=== PATIENT | male | born 1985 | race Two or more races ===

== ENCOUNTER → 2020-04-03 | Outpatient (CLI) | payer OTHER ==
[~2020-04-03] MED LIST: AMOXICILLIN500 MG; IBUPROFEN IB200 MG; TOBREX5 ML OP
== END | disposition home or self-care (01) ==
LOC: LAB 16:11 → CERTIFICAD 16:11
PROVIDERS: ATTEND General Practice
DX: Z11.1 Encounter for screening for respiratory tuberculosis (principal)

== ENCOUNTER → 2020-06-27 | Outpatient (CLI) | payer OTHER | END | disposition home or self-care (01) | LOC: PPH VACUNA 09:00 | DX: Z23 Encounter for immunization (principal) ==

== ENCOUNTER 2020-09-17 11:38 | Outpatient (CLI) | payer OTHER | END 2020-09-17 13:01 | disposition home or self-care (01) | LOC: PPH VACUNA 11:38 | DX: Z23 Encounter for immunization (principal) ==

== ENCOUNTER 2021-07-28 08:15 | Outpatient (CLI) | payer OTHER | END 2021-07-28 08:19 | disposition home or self-care (01) | LOC: PPH VACUNA 08:15 | PROVIDERS: ATTEND Emergency Medicine Pediatric Emergency Medicine | DX: Z23 Encounter for immunization (principal) ==

== ENCOUNTER 2021-08-15 16:58 | Emergency (ER) | payer OTHER ==
[~2021-08-15] VITALS: Ht 188 cm; Wt 99.8 kg
== END 2021-08-15 20:11 | disposition home or self-care (01) ==
LOC: ER 16:58
DX: B34.9 Viral infection, unspecified (principal); J11.1 Influenza due to unidentified influenza virus with other respiratory manifestations; M25.50 Pain in unspecified joint; Z03.818 Encounter for observation for suspected exposure to other biological agents ruled out

== ENCOUNTER 2022-06-24 13:48 | Outpatient (CLI) | payer OTHER | END 2022-06-24 13:53 | disposition home or self-care (01) | LOC: PPH VACUNA 13:48 | PROVIDERS: ATTEND Emergency Medicine Pediatric Emergency Medicine | DX: Z23 Encounter for immunization (principal) ==

== ENCOUNTER → 2022-07-10 08:35 | Outpatient (CLI) | payer OTHER | END | disposition home or self-care (01) | LOC: LAB 08:35 | PROVIDERS: ATTEND Internal Medicine | DX: Z13.0 Encounter for screening for diseases of the blood and blood-forming organs and certain disorders involving the immune mechanism (principal); Z13.220 Encounter for screening for lipoid disorders; Z13.29 Encounter for screening for other suspected endocrine disorder; E55.9 Vitamin D deficiency, unspecified ==

== ENCOUNTER 2022-09-12 09:44 | Outpatient (CLI) | payer OTHER | END 2022-09-12 09:45 | disposition home or self-care (01) | LOC: LAB 09:44 | PROVIDERS: ATTEND Internal Medicine | DX: E78.9 Disorder of lipoprotein metabolism, unspecified (principal); Z13.1 Encounter for screening for diabetes mellitus; Z13.220 Encounter for screening for lipoid disorders; Z13.29 Encounter for screening for other suspected endocrine disorder; E55.9 Vitamin D deficiency, unspecified ==

== ENCOUNTER 2022-09-16 11:10 | Outpatient (CLI) | payer OTHER | END 2022-09-16 11:20 | disposition home or self-care (01) | LOC: PPH VACUNA 11:10 | PROVIDERS: ATTEND Emergency Medicine Pediatric Emergency Medicine | DX: Z23 Encounter for immunization (principal) ==

== ENCOUNTER 2023-03-27 09:57 | Outpatient (CLI) | payer OTHER | END 2023-03-27 09:59 | disposition home or self-care (01) | LOC: LAB 09:57 | PROVIDERS: ATTEND Internal Medicine | DX: E55.9 Vitamin D deficiency, unspecified (principal); Z13.1 Encounter for screening for diabetes mellitus; Z13.220 Encounter for screening for lipoid disorders; Z13.29 Encounter for screening for other suspected endocrine disorder ==

== ENCOUNTER 2023-05-18 13:06 | Emergency (ER) | payer OTHER ==
[~2023-05-18] VITALS: Ht 180.3 cm; Wt 95.3 kg
[2023-05-18] MEDS ORDERED: TOBRAMYCIN-DEXAM5 ML OP (13:15)
== END 2023-05-18 13:48 | disposition home or self-care (01) ==
LOC: ER 13:06
DX: H10.31 Unspecified acute conjunctivitis, right eye (principal)

== ENCOUNTER 2023-07-28 13:30 | Outpatient (CLI) | payer OTHER ==
[~2023-07-28 13:30] MED LIST changes: +TOBRAMYCIN-DEXAM5 ML OP
== END 2023-07-28 13:40 | disposition home or self-care (01) ==
LOC: PPH VACUNA 13:30
PROVIDERS: ATTEND Emergency Medicine Pediatric Emergency Medicine
DX: Z23 Encounter for immunization (principal)
CPT/HCPCS: 90686; G0008

== ENCOUNTER 2023-09-20 19:42 | Emergency (ER) | payer OTHER ==
[~2023-09-20] VITALS: Ht 182.9 cm; Wt 90.7 kg
[2023-09-20 20:08] LABS: HEMATOCRIT 43.2 % (39.0-48.0); HEMOGLOBIN 15.2 g/dL (13-16.00); MEAN CELL VOLUME 85.4 fL (80.0-100.00); MEAN CORPUSCULAR HGB CONC 35.1 g/dl (32.0-36.0); PLATELET COUNT 215 K/uL (150-450); RED BLOOD COUNT 5.06 M/uL (4.00-6.00); RED CELL DISTRIBUTION WIDTH 13.5 % (11.5-14.5)
== END 2023-09-20 21:21 | disposition home or self-care (01) ==
LOC: ER 19:42
PROVIDERS: General Practice
DX: B34.9 Viral infection, unspecified (principal)

== ENCOUNTER 2023-11-13 10:18 | Outpatient (CLI) | payer OTHER ==
[2023-11-13 11:32] LABS: HEMATOCRIT 47.1 % (39.0-48.0); HEMOGLOBIN 16.4 g/dL (13-16.00); MEAN CELL VOLUME 86.7 fL (80.0-100.00); MEAN CORPUSCULAR HEMOGLOBIN 30.1 pg (27.00-32.0); MEAN CORPUSCULAR HGB CONC 34.8 g/dl (32.0-36.0); PLATELET COUNT 215 K/uL (150-450); RED BLOOD COUNT 5.43 M/uL (4.00-6.00); RED CELL DISTRIBUTION WIDTH 14.3 % (11.5-14.5)
[2023-11-13 12:30] LABS: ALBUMIN 4.2 gm/dL (3.4-5.0); BILIRUBIN TOTAL 0.58 mg/dL (0.3-1.2); CALCIUM 9.5 mg/dL (8.5-10.1); CREATININE SERUM 0.91 mg/dL (0.70-1.30); GFR 93.24; GLOBULINA 3.6 G/DL (2.4-3.5); POTASSIUM 4.37 mEq/L (3.5-5.1); TOTAL PROTEIN 7.8 gm/dL (6.4-8.2); TSH 1.22 uIU/mL (0.358-3.74)
== END 2023-11-13 10:20 | disposition home or self-care (01) ==
LOC: LAB 10:18
DX: E55.9 Vitamin D deficiency, unspecified (principal); E78.9 Disorder of lipoprotein metabolism, unspecified; Z13.29 Encounter for screening for other suspected endocrine disorder; Z13.220 Encounter for screening for lipoid disorders

== ENCOUNTER 2023-12-28 12:42 | Outpatient (CLI) | payer OTHER | END 2023-12-28 12:51 | disposition home or self-care (01) | LOC: RAD 12:42 | PROVIDERS: ATTEND General Practice | DX: M54.50 Low back pain, unspecified (principal) ==

== ENCOUNTER 2024-07-06 12:15 | Outpatient (CLI) | payer OTHER | END 2024-07-06 12:45 | disposition home or self-care (01) | LOC: PPH VACUNA 12:15 | PROVIDERS: ATTEND Emergency Medicine Pediatric Emergency Medicine | DX: Z23 Encounter for immunization (principal) ==